=== PATIENT | male | born 1960 | race African-American/Black ===

== ENCOUNTER 2021-10-08 09:37 | Emergency (ER) | payer MEDICAID ==
[~2021-10-08] VITALS: Ht 177.8 cm; Wt 68.2 kg
[2021-10-08] MEDS ORDERED: BACITRACIN 0.9 GM PACKET OINTMENT TP ONE (13:00)
[2021-10-08 16:01] VITALS: BP 149/90
[2021-10-08] MEDS ORDERED: DOXYCYCLINE HYCLATE 100 MG TABLET PO ONE (16:45)
[2021-10-08] MEDS ORDERED: CEPHALEXIN MONOHYDRATE 500 MG CAPSULE PO ONE (16:45)
== END 2021-10-08 17:11 | disposition home or self-care (01) ==
LOC: EMS 09:42
DX: Z47.89 Encounter for other orthopedic aftercare (principal); I10 Essential (primary) hypertension; Z59.00 Homelessness unspecified
CPT/HCPCS: 29515; 99283

== ENCOUNTER 2021-10-11 16:37 | Emergency (ER) | payer MEDICAID ==
[~2021-10-11] VITALS: Ht 177.8 cm; Wt 70.0 kg
[2021-10-11 18:49] LABS: BASOPHILS % (AUTO) 1.5 % (0.0-2.0); EOSINOPHILS % (AUTO) 1.9 % (1.0-6.0); LYMPHOCYTES % (AUTO) 30.3 % (22.0-44.0); MEAN CORPUSCULAR HEMOGLOBIN 28.4 pg (26.0-34.0); MEAN CORPUSCULAR HGB CONC 33.4 G/dL (31.0-37.0); MEAN CORPUSCULAR VOLUME 85 fL (80-100); MONOCYTES # (AUTO) 0.6 K/uL (0.1-1.0); MONOCYTES % (AUTO) 20.2 % (2.0-9.0); NEUTROPHILS # (AUTO) 1.5 K/uL (1.8-7.7); NEUTROPHILS % (AUTO) 46.1 % (40.0-70.0); PLATELET COUNT (AUTO) 304 K/uL (150-450); RED BLOOD CELL COUNT(AUTO) 4.59 MIL/uL (4.50-5.90); RED CELL DISTRIBUTION WIDTH 14.6 % (11.5-14.5)
[2021-10-11 19:04] LABS: CALCIUM, TOTAL 8.5 mg/dL (8.8-10.5); CREATININE 1.82 mg/dL (0.60-1.30); POTASSIUM 3.9 mmol/L (3.5-5.1)
[2021-10-11 19:10] LABS: BILIRUBIN,TOTAL 0.3 mg/dL (0.1-1.0)
[2021-10-11] MEDS ORDERED: ACETAMINOPHEN 500 MG TABLET PO ONE (20:15)
[2021-10-11 20:31] VITALS: BP 135/78
== END 2021-10-11 22:28 | disposition home or self-care (01) ==
LOC: EMS 16:57
DX: R07.89 Other chest pain (principal); M79.672 Pain in left foot; I10 Essential (primary) hypertension
CPT/HCPCS: 71045; 80053; 84484; 85025; 93005; 99285; 36415-L1; 36415-TC

== ENCOUNTER 2023-06-07 18:02 | Inpatient (IN) | payer MEDICAID ==
[~2023-06-07] VITALS: Ht 177.8 cm; Wt 79.4 kg
[2023-06-07] MEDS ORDERED: HALOPERIDOL 5 MG TABLET PO PRN (22:30)
[2023-06-07] MEDS ORDERED: ZOLPIDEM TARTRATE 10 MG TABLET PO PRN (22:30)
[2023-06-07] MEDS ORDERED: LORazepam 2 MG TABLET PO PRN (22:30)
[2023-06-08 00:54] VITALS: BP 122/85; PULSE 66; RESP 18; TEMP 98
[2023-06-08] MEDS ORDERED: PNEUMOCOCCAL VACCINE POLYVALENT 0.5 ML SYRINGE [PPSV23] IM. ONE (04:15)
[2023-06-08 07:44] LABS: EOSINOPHILS % (AUTO) 4.1 % (1.0-6.0); HEMOGLOBIN 12.9 g/dL (13.5-17.5); LYMPHOCYTES # (AUTO) 1.6 K/uL (1.0-4.8); LYMPHOCYTES % (AUTO) 30.4 % (22.0-44.0); MEAN CORPUSCULAR HEMOGLOBIN 28.7 pg (26.0-34.0); MEAN CORPUSCULAR HGB CONC 32.3 G/dL (31.0-37.0); MEAN CORPUSCULAR VOLUME 89 fL (80-100); MONOCYTES # (AUTO) 0.6 K/uL (0.1-1.0); MONOCYTES % (AUTO) 11.9 % (2.0-9.0); NEUTROPHILS # (AUTO) 2.8 K/uL (1.8-7.7); NEUTROPHILS % (AUTO) 52.6 % (40.0-70.0); PLATELET COUNT (AUTO) 231 K/uL (150-450); RED CELL DISTRIBUTION WIDTH 14.9 % (11.5-14.5); WHITE BLOOD COUNT (AUTO) 5.4 K/uL (4.5-11.0)
[2023-06-08 07:51] LABS: HEMOGLOBIN A1C 5.5 % (3.8-5.6)
[2023-06-08 08:08] LABS: ALANINE AMINOTRANSFERASE 40 U/L (12-78); ALBUMIN 3.2 g/dL (3.4-5.0); ALKALINE PHOSPHATASE 76 U/L (46-116); ANION GAP 7 mmol/L (8-16); ASPARTATE AMINOTRANSFERASE 51 U/L (15-37); BILIRUBIN,TOTAL 0.4 mg/dL (0.1-1.0); CALCIUM, TOTAL 8.8 mg/dL (8.8-10.5); CARBON DIOXIDE 27 mmol/L (22-29); CHLORIDE 106 mmol/L (98-107); CHOL/HDL RATIO 2.3 (4.2-7.3); CHOLESTEROL 153 mg/dL (131-200); CREATININE 1.38 mg/dL (0.60-1.30); FREE T4 (FREE THYROXINE) 0.96 ng/dL (0.76-1.46); GLOMERULAR FILTR. RATE CALC > 60 mL/min (>60); GLUCOSE,RANDOM 90 mg/dL (70-110); HDL CHOLESTEROL 68 mg/dL (40-60); LDL CHOL (CALC.) 70 mg/dL (0-130); POTASSIUM 4.2 mmol/L (3.5-5.1); SODIUM SERUM 140 mmol/L (136-145); THYROID STIMULATING HORMONE 1.39 uIU/mL (0.36-3.74); TOTAL PROTEIN, SERUM 6.4 g/dL (6.4-8.2); TRIGLYCERIDES 76 mg/dL (15-150); UREA NITROGEN, BLOOD 24 mg/dL (7-18)
[2023-06-08 08:24] VITALS: BP 111/65; PULSE 75; RESP 17; TEMP 98; O2SAT 96
[2023-06-08] MEDS ORDERED: ONDANSETRON HCL 4 MG TABLET PO PRN (08:45)
[2023-06-08] MEDS ORDERED: IBUPROFEN 600 MG TABLET PO PRN (08:45)
[2023-06-08] MEDS ORDERED: BACITRACIN 28 GM OINTMENT TP PRN (08:45)
[2023-06-08] MEDS ORDERED: OMEPRAZOLE 20 MG CAPSULE PO PRN (08:45)
[2023-06-08] MEDS ORDERED: CloNIDine HCL 0.1 MG TABLET PO PRN (08:45)
[2023-06-08] MEDS ORDERED: MAGNESIUM HYDROXIDE SUSPENSION 30 ML UDCUP PO PRN (08:45)
[2023-06-08] MEDS ORDERED: ACETAMINOPHEN 325 MG TABLET PO PRN (08:45)
[2023-06-08] MEDS ORDERED: DOCUSATE SODIUM 100 MG CAPSULE PO PRN (08:45)
[2023-06-08] MEDS ORDERED: LOPERAMIDE HCL 2 MG CAPSULE PO PRN (08:45)
[2023-06-08] MEDS ORDERED: MAG HYDROX/AL HYDROX/SIMETH ES 30 ML SUSPENSION UDCUP PO PRN (08:45)
[2023-06-08] MEDS ORDERED: ALBUTEROL SULFATE HFA 90 MCG/PUFF 8 GM INHALER IH PRN (08:45)
[2023-06-08] MEDS ORDERED: BENZOCAINE/MENTHOL LOZENGE PO PRN (08:45)
[2023-06-08] MEDS ORDERED: PETROLATUM,WHITE 28 GM JELLY TP PRN (08:45)
[2023-06-08] MEDS: OLANZapine 5 MG TABLET PO SCH (20:30)
[2023-06-08 20:36] VITALS: BP 131/84; PULSE 68; RESP 18; TEMP 97.7; O2SAT 100
[2023-06-09 08:04] VITALS: BP 138/76; PULSE 77; RESP 18; TEMP 98; O2SAT 99
[2023-06-09] MEDS: OLANZapine 5 MG TABLET PO SCH (20:01)
[2023-06-09 20:07] VITALS: BP 133/75; PULSE 77; RESP 18; TEMP 97.6; O2SAT 99
[2023-06-10 08:20] VITALS: BP 144/73; PULSE 82; RESP 17; TEMP 97.9; O2SAT 100
[2023-06-10] MEDS: OLANZapine 5 MG TABLET PO SCH (20:05)
[2023-06-10 20:19] VITALS: BP 122/68; PULSE 70; RESP 18; TEMP 97.6; O2SAT 99
[2023-06-11 08:26] VITALS: BP 121/89; PULSE 84; RESP 18; TEMP 97.9; O2SAT 100
[2023-06-11 20:15] VITALS: BP 132/85; PULSE 84; RESP 18; TEMP 97.7; O2SAT 98
[2023-06-11] MEDS: OLANZapine 5 MG TABLET PO SCH (21:00)
[2023-06-12 08:40] VITALS: BP 125/72; PULSE 85; RESP 18; TEMP 98; O2SAT 98
[2023-06-12] MEDS: MULTIVITAMINS WITH MINERALS, THERAPEUTIC TABLET PO SCH (08:42)
[2023-06-12] MEDS: OLANZapine 5 MG TABLET PO SCH (20:04)
[2023-06-12 21:50] VITALS: BP 137/81; PULSE 80; RESP 18; TEMP 97.5; O2SAT 99
[2023-06-13] MEDS: MULTIVITAMINS WITH MINERALS, THERAPEUTIC TABLET PO SCH (08:31)
[2023-06-13 08:45] VITALS: BP 123/81; PULSE 86; RESP 18; TEMP 97.7; O2SAT 100
[2023-06-13] MEDS: MUPIROCIN CALCIUM 2% 22 GM OINTMENT TP SCH ×2 (17:00→17:26)
[2023-06-13] MEDS: OLANZapine 5 MG TABLET PO SCH (20:16)
[2023-06-13 22:08] VITALS: BP 122/65; PULSE 62; RESP 18; TEMP 98; O2SAT 98
[2023-06-14] MEDS: MUPIROCIN CALCIUM 2% 22 GM OINTMENT TP SCH ×2 (08:17→17:00)
[2023-06-14] MEDS: MULTIVITAMINS WITH MINERALS, THERAPEUTIC TABLET PO SCH (08:17)
[2023-06-14 09:36] VITALS: BP 128/75; PULSE 85; RESP 18; TEMP 97.3; O2SAT 99
[2023-06-14 20:21] VITALS: BP 138/93; PULSE 84; RESP 18; TEMP 97.7; O2SAT 100
[2023-06-14] MEDS: OLANZapine 5 MG TABLET PO SCH (21:00)
[2023-06-15] MEDS: MULTIVITAMINS WITH MINERALS, THERAPEUTIC TABLET PO SCH (08:18)
[2023-06-15] MEDS: MUPIROCIN CALCIUM 2% 22 GM OINTMENT TP SCH (08:18)
[2023-06-15 08:42] VITALS: BP 137/68; PULSE 97; RESP 18; TEMP 97.8; O2SAT 100
== END 2023-06-15 15:45 | disposition home or self-care (01) | DRG 750 ==
LOC: B3A 22:48
PROVIDERS: ADMIT Psychiatry & Neurology Psychiatry; ATTEND Psychiatry & Neurology Psychiatry
DX: F25.9 Schizoaffective disorder, unspecified (principal); F29 Unspecified psychosis not due to a substance or known physiological condition; F10.10 Alcohol abuse, uncomplicated; F15.10 Other stimulant abuse, uncomplicated; F41.9 Anxiety disorder, unspecified; G47.00 Insomnia, unspecified; K59.00 Constipation, unspecified; I12.9 Hypertensive chronic kidney disease with stage 1 through stage 4 chronic kidney disease, or unspecified chronic kidney disease; N18.30 Chronic kidney disease, stage 3 unspecified
CPT/HCPCS: 80053; 80061; 83036; 84439; 84443; 85025; 87081

== ENCOUNTER 2023-06-15 17:07 | Inpatient (IN) | payer MEDICAID, OTHER ==
[~2023-06-15] VITALS: Ht 175.3 cm; Wt 77.3 kg
[2023-06-15] MEDS ORDERED: ONDANSETRON HCL 4 MG/2 ML VIAL IVP PRN (22:30)
[2023-06-15] MEDS ORDERED: MAGNESIUM HYDROXIDE SUSPENSION 30 ML UDCUP PO PRN (22:30)
[2023-06-15] MEDS ORDERED: ACETAMINOPHEN 325 MG TABLET PO PRN (22:30)
[2023-06-15] MEDS ORDERED: SODIUM CHLORIDE 0.9% 1,000 ML IV ONE (22:30)
[2023-06-15] MEDS ORDERED: MORPHINE SULFATE 2 MG/ML SYRINGE IVP PRN (22:30)
[2023-06-15 22:48] LABS: BASOPHILS % (AUTO) 0.7 % (0.0-2.0); EOSINOPHILS % (AUTO) 1.6 % (1.0-6.0); HEMATOCRIT 43.5 % (41-53); HEMOGLOBIN 14.2 g/dL (13.5-17.5); LYMPHOCYTES # (AUTO) 1.9 K/uL (1.0-4.8); LYMPHOCYTES % (AUTO) 23.4 % (22.0-44.0); MEAN CORPUSCULAR HGB CONC 32.7 G/dL (31.0-37.0); MEAN CORPUSCULAR VOLUME 89 fL (80-100); MONOCYTES # (AUTO) 0.8 K/uL (0.1-1.0); MONOCYTES % (AUTO) 9.5 % (2.0-9.0); NEUTROPHILS # (AUTO) 5.3 K/uL (1.8-7.7); NEUTROPHILS % (AUTO) 64.8 % (40.0-70.0); PLATELET COUNT (AUTO) 346 K/uL (150-450); RED CELL DISTRIBUTION WIDTH 15.1 % (11.5-14.5); WHITE BLOOD COUNT (AUTO) 8.3 K/uL (4.5-11.0)
[2023-06-15 22:58] LABS: ANION GAP 7 mmol/L (8-16); CALCIUM, TOTAL 9.4 mg/dL (8.8-10.5); CARBON DIOXIDE 30 mmol/L (22-29); CHLORIDE 101 mmol/L (98-107); CREATININE 1.37 mg/dL (0.60-1.30); GLOMERULAR FILTR. RATE CALC > 60 mL/min (>60); GLUCOSE,RANDOM 104 mg/dL (70-110); POTASSIUM 4.4 mmol/L (3.5-5.1); SODIUM SERUM 138 mmol/L (136-145); UREA NITROGEN, BLOOD 20 mg/dL (7-18)
[2023-06-15 23:05] LABS: ALANINE AMINOTRANSFERASE 34 U/L (12-78); ALBUMIN 3.9 g/dL (3.4-5.0); ALKALINE PHOSPHATASE 94 U/L (46-116); ASPARTATE AMINOTRANSFERASE 23 U/L (15-37); BILIRUBIN,TOTAL 0.2 mg/dL (0.1-1.0); TOTAL PROTEIN, SERUM 7.9 g/dL (6.4-8.2); TROPONIN I-HIGH SENSITIVITY 32 ng/L (<76)
[2023-06-15 23:17] LABS: COVID AG,FIA SOURCE NASAL SWAB
[2023-06-15 23:26] LABS: ALCOHOL, BLOOD (SERUM) < 3 mg/dL (0-10)
[2023-06-15 23:50] LABS: SARS-COV2 (COVID) ANTIGEN,FIA Negative (Negative)
[2023-06-16 01:13] VITALS: BP 142/88; PULSE 74; RESP 20; TEMP 97.7; O2SAT 100
[2023-06-16 01:15] VITALS: BP 142/88; PULSE 74; RESP 20; TEMP 97.7
[2023-06-16 04:28] VITALS: BP 134/86; PULSE 74; RESP 20; TEMP 97.7
[2023-06-16 06:54] LABS: APPEARANCE,URINE CLEAR (CLEAR); BILIRUBIN,URINE NEGATIVE (NEGATIVE); COLOR,URINE COLORLESS (YELLOW); GLUCOSE, URINE (UA) NEGATIVE (NEGATIVE); KETONES,URINE NEGATIVE (NEGATIVE); LEUKOCYTE ESTERASE ,URINE NEGATIVE (NEGATIVE); NITRATE,URINE NEGATIVE (NEGATIVE); OCCULT BLOOD,URINE NEGATIVE (NEGATIVE); PROTEIN,URINE NEGATIVE (NEGATIVE); SPECIFIC GRAVITIY, URINE 1.009 (1.003-1.030); UROBILINOGEN,URINE <=1.0 mg/dL (<=1.0)
[2023-06-16 07:11] LABS: AMPHET/METH SCREEN,URINE NEGATIVE (NEGATIVE); BARBITURATE SCREEN, URINE NEGATIVE (NEGATIVE); BENZODIAZEPINES SCREEN,URINE NEGATIVE (NEGATIVE); CANNABINOID SCREEN,URINE NEGATIVE (NEGATIVE); COCAINE SCREEN,URINE NEGATIVE (NEGATIVE); METHADONE SCREEN, URINE NEGATIVE (NEGATIVE); OPIATE SCREEN,URINE NEGATIVE (NEGATIVE); PHENCYCLIDINE SCREEN,URINE NEGATIVE (NEGATIVE)
[2023-06-16 07:12] LABS: ALCOHOL, URINE DRUG SCREEN NEGATIVE (NEGATIVE)
[2023-06-16 07:16] LABS: BACTERIA,URINE None Seen /HPF (None Seen); RBC,URINE None Seen /HPF (0-2); WBC,URINE None Seen /HPF (0-5)
[2023-06-16] MEDS: DOCUSATE SODIUM 100 MG CAPSULE PO SCH ×2 (08:42→20:26)
[2023-06-16] MEDS: FAMOTIDINE 20 MG TABLET PO SCH (08:42)
[2023-06-16] MEDS ORDERED: BUPIVACAINE 0.25%/EPI 1:200,000/PF 10 ML VIAL ONE (09:53)
[2023-06-16] MEDS ORDERED: BUPIVACAINE HCL/PF 0.25% 30 ML VIAL ONE ×2 (09:54→09:55)
[2023-06-16] MEDS ORDERED: MEPERIDINE-PF 25 MG/ML VIAL IVP PRN (10:45)
[2023-06-16] MEDS ORDERED: HYDROmorphone HCL 2 MG/ML SYRINGE IVP PRN ×2 (10:45→12:30)
[2023-06-16] MEDS ORDERED: FentaNYL CITRATE PF 100 MCG/2 ML VIAL IVP PRN (10:45)
[2023-06-16] MEDS ORDERED: BUPIVACAINE 0.25%/EPI 1:200,000/PF 30 ML VIAL PERC ONE ×2 (11:20)
[2023-06-16] MEDS ORDERED: LIDOCAINE/PF 2% 5 ML VIAL IM ONE (12:00)
[2023-06-16] MEDS ORDERED: SUGAMMADEX SODIUM 200 MG/2 ML VIAL IVP ONE (12:00)
[2023-06-16] MEDS ORDERED: ONDANSETRON HCL 4 MG/2 ML VIAL IVP ONE (12:00)
[2023-06-16] MEDS ORDERED: KETOROLAC TROMETHAMINE 60 MG/2 ML VIAL IM ONE (12:00)
[2023-06-16] MEDS ORDERED: DEXAMETHASONE SOD PHOS 4 MG/ML VIAL IVP ONE (12:00)
[2023-06-16] MEDS ORDERED: CeFAZolin SODIUM 1 GM VIAL IVP ONE (12:00)
[2023-06-16] MEDS ORDERED: PROPOFOL 1% ISO-OSM 1000 MG/100 ML BOTTLE IV ONE (12:00)
[2023-06-16] MEDS ORDERED: METOCLOPRAMIDE HCL 5 MG/ML 2 ML VIAL IVP ONE (12:00)
[2023-06-16] MEDS ORDERED: ROCURONIUM BROMIDE 10 MG/ML 5 ML VIAL IVP ONE (12:00)
[2023-06-16] MEDS ORDERED: MORPHINE SULFATE 4 MG/ML SYRINGE IVP PRN (12:30)
[2023-06-16 15:22] VITALS: BP 152/92; PULSE 85; RESP 20; TEMP 98.7
[2023-06-16] MEDS: IBUPROFEN 400 MG TABLET PO SCH ×2 (15:49→20:22)
[2023-06-16 20:05] VITALS: BP 141/87; PULSE 95; RESP 20; TEMP 98.3
[2023-06-16] MEDS: OXYGEN THERAPY IH SCH (20:21)
[2023-06-17] MEDS: HYDROCODONE/ACETAMINOPHEN 5-325 MG TABLET PO PRN ×3 (00:55→19:38)
[2023-06-17 04:30] VITALS: BP 146/99; PULSE 80; RESP 20; TEMP 97.1
[2023-06-17 07:05] LABS: ANION GAP 8 mmol/L (8-16); CARBON DIOXIDE 30 mmol/L (22-29); CHLORIDE 100 mmol/L (98-107); CREATININE 1.37 mg/dL (0.60-1.30); GLOMERULAR FILTR. RATE CALC > 60 mL/min (>60); GLUCOSE,RANDOM 94 mg/dL (70-110); POTASSIUM 4.3 mmol/L (3.5-5.1); SODIUM SERUM 138 mmol/L (136-145); UREA NITROGEN, BLOOD 15 mg/dL (7-18)
[2023-06-17 07:19] LABS: BASOPHILS % (AUTO) 0.1 % (0.0-2.0); EOSINOPHILS % (AUTO) 0.1 % (1.0-6.0); HEMATOCRIT 42.6 % (41-53); HEMOGLOBIN 13.7 g/dL (13.5-17.5); LYMPHOCYTES # (AUTO) 1.7 K/uL (1.0-4.8); LYMPHOCYTES % (AUTO) 10.7 % (22.0-44.0); MEAN CORPUSCULAR HEMOGLOBIN 28.8 pg (26.0-34.0); MEAN CORPUSCULAR HGB CONC 32.2 G/dL (31.0-37.0); MEAN CORPUSCULAR VOLUME 89 fL (80-100); MONOCYTES # (AUTO) 1.4 K/uL (0.1-1.0); MONOCYTES % (AUTO) 8.9 % (2.0-9.0); NEUTROPHILS # (AUTO) 12.8 K/uL (1.8-7.7); NEUTROPHILS % (AUTO) 80.2 % (40.0-70.0); PLATELET COUNT (AUTO) 336 K/uL (150-450); RED BLOOD CELL COUNT(AUTO) 4.77 MIL/uL (4.50-5.90); RED CELL DISTRIBUTION WIDTH 14.7 % (11.5-14.5)
[2023-06-17] MEDS: OXYGEN THERAPY IH SCH ×2 (08:00→19:38)
[2023-06-17] MEDS: DOCUSATE SODIUM 100 MG CAPSULE PO SCH ×2 (08:48→19:38)
[2023-06-17] MEDS: FAMOTIDINE 20 MG TABLET PO SCH (08:48)
[2023-06-17] MEDS: IBUPROFEN 400 MG TABLET PO SCH ×3 (08:49→21:13)
[2023-06-17 12:49] VITALS: BP 124/54; PULSE 73; RESP 20; TEMP 98.4
[2023-06-17 16:58] VITALS: BP 150/93; PULSE 74; RESP 20; TEMP 97.9
[2023-06-17 20:03] VITALS: BP 151/93; PULSE 82; RESP 18; TEMP 98.5
[2023-06-18 05:22] VITALS: BP 146/89; PULSE 64; RESP 20; TEMP 98.4
[2023-06-18] MEDS: OXYGEN THERAPY IH SCH (08:00)
[2023-06-18 08:10] VITALS: BP 143/88; PULSE 75; RESP 20; TEMP 98.3
[2023-06-18] MEDS: IBUPROFEN 400 MG TABLET PO SCH ×2 (08:20→16:12)
[2023-06-18] MEDS: FAMOTIDINE 20 MG TABLET PO SCH (08:21)
[2023-06-18] MEDS: DOCUSATE SODIUM 100 MG CAPSULE PO SCH (08:24)
[2023-06-18 11:51] LABS: BASOPHILS % (AUTO) 0.7 % (0.0-2.0); EOSINOPHILS % (AUTO) 1.7 % (1.0-6.0); LYMPHOCYTES # (AUTO) 1.3 K/uL (1.0-4.8); MEAN CORPUSCULAR HEMOGLOBIN 28.9 pg (26.0-34.0); MEAN CORPUSCULAR HGB CONC 32.5 G/dL (31.0-37.0); MEAN CORPUSCULAR VOLUME 89 fL (80-100); MONOCYTES # (AUTO) 0.8 K/uL (0.1-1.0); MONOCYTES % (AUTO) 10.4 % (2.0-9.0); NEUTROPHILS # (AUTO) 5.8 K/uL (1.8-7.7); NEUTROPHILS % (AUTO) 71.2 % (40.0-70.0); PLATELET COUNT (AUTO) 307 K/uL (150-450); RED BLOOD CELL COUNT(AUTO) 4.51 MIL/uL (4.50-5.90); WHITE BLOOD COUNT (AUTO) 8.2 K/uL (4.5-11.0)
[2023-06-18 15:05] VITALS: BP 142/86; PULSE 70; RESP 18; TEMP 98.4
== END 2023-06-18 19:25 | disposition home or self-care (01) | DRG 228 ==
LOC: EMS 17:07 → 6S 23:21
PROVIDERS: ADMIT Internal Medicine; ATTEND Internal Medicine
PROC: 0YU50JZ Supplement Right Inguinal Region with Synthetic Substitute, Open Approach (ICD-10-PCS; principal; 2023-06-16 11:15)
DX: K40.30 Unilateral inguinal hernia, with obstruction, without gangrene, not specified as recurrent (principal); D17.6 Benign lipomatous neoplasm of spermatic cord; I12.9 Hypertensive chronic kidney disease with stage 1 through stage 4 chronic kidney disease, or unspecified chronic kidney disease; N18.9 Chronic kidney disease, unspecified; F19.10 Other psychoactive substance abuse, uncomplicated; F99 Mental disorder, not otherwise specified; Z20.822 Contact with and (suspected) exposure to COVID-19; F20.9 Schizophrenia, unspecified; Z59.00 Homelessness unspecified; D72.829 Elevated white blood cell count, unspecified
CPT/HCPCS: 71045; 80048; 80053; 80307; 81001; 84484; 85025; 88302; 93005; 99285; G0480; J0690; J1100; J1885; J2405; J2704; J2765; J3490; J7030; Q9967; 36415-L1; 36415-TC; Z7610

== ENCOUNTER 2023-07-14 08:29 | Emergency (ER) | payer OTHER ==
[~2023-07-14] VITALS: Ht 180.3 cm; Wt 75.0 kg
[2023-07-14 08:42] VITALS: TEMP 97.5
[2023-07-14 09:29] VITALS: BP 141/77; PULSE 77; RESP 16
== END 2023-07-14 09:49 | disposition home or self-care (01) ==
LOC: EMS 08:32
DX: T81.33XD Disruption of traumatic injury wound repair, subsequent encounter (principal); I10 Essential (primary) hypertension; F15.90 Other stimulant use, unspecified, uncomplicated; Z48.02 Encounter for removal of sutures; Z98.890 Other specified postprocedural states; X58.XXXD Exposure to other specified factors, subsequent encounter
CPT/HCPCS: 99281; Z7502